=== PATIENT | male | born 1995 | race Caucasian/White ===

== ENCOUNTER 2021-04-10 17:14 | Emergency (ER) | payer OTHER ==
[~2021-04-10] VITALS: Ht 172.7 cm; Wt 59.0 kg
[~2021-04-10 17:14] MED LIST: ALBU90OI INH; ALBU90OI61; AMOX250CH PO; AMOX500 PO; AMOX50SU PO; AMOX875 PO; CEPH500 PO; CIPR250 PO; CODGUAEL PO; HYDACE5 PO; METR250 PO; SULTRIDS PO; [UNRECOGNIZED DRUG - REMARK]
[2021-04-10 19:50] LABS: BASOPHILS ABSOLUTE AUTO 0.02 K/mm3 (0.00-0.23); BASOPHILS PERCENT AUTO 0 % (0-2); EOSINOPHILS PERCENT AUTO 0 % (0-6); Hematocrit 38.9 % (37.0-53.0); Hemoglobin 13.2 g/dL (13.5-17.5); IMMATURE GRAN ABSOLUTE AUTO 0.07 K/mm3 (0.00-0.10); IMMATURE GRAN PERCENT AUTO 0 % (0-1); LYMPHOCYTES ABSOLUTE AUTO 0.55 K/mm3 (0.84-5.20); LYMPHOCYTES PERCENT AUTO 3 % (21-46); MONOCYTES ABSOLUTE AUTO 1.09 K/mm3 (0.16-1.47); MONOCYTES PERCENT AUTO 6 % (4-13); Mean Corpuscular HGB 30.7 pg (26.0-34.0); Mean Corpuscular HGB Conc 33.9 g/dL (31.5-36.5); Mean Corpuscular Volume 91 fL (80-100); Mean Platelet Volume 10.6 fL (9.1-12.4); NEUTROPHILS PERCENT AUTO 90 % (41-73); Platelet Count 169 K/mm3 (150-400); RDW Coefficient Variation 11.7 % (11.7-14.2); RDW Standard Deviation 38.5 fL (35.1-46.3); White Blood Cell Count 17.03 K/mm3 (4.00-11.30)
[2021-04-10 20:07] LABS: Alanine Aminotransfer (ALT/SGP 24 U/L (12-78); Albumin, Blood 3.5 g/dL (3.4-5.0); Alk Phos 83 U/L (50-136); Anion Gap 5 mmol/L (6-16); Aspartate Aminotrans (AST/SGOT 20 U/L (12-37); Bilirubin, Total 0.3 mg/dL (0.1-1.0); Blood Urea Nitrogen 20 mg/dL (8-24); Bun/Creatinine Ratio 24.4 (12.0-20.0); CO2, Blood 27 mmol/L (21-32); Calcium, Blood 8.7 mg/dL (8.5-10.1); Chloride, Blood 107 mmol/L (98-108); Creatinine, Blood 0.82 mg/dL (0.60-1.20); Globulin, Blood 3.6 g/dL (2.2-4.0); Glomerular Filtration Rate >60 (60-); Glucose, Blood 118 mg/dL (70-99); Potassium, Blood 4.1 mmol/L (3.5-5.5); Sodium, Blood 139 mmol/L (136-145); Total Protein, Blood 7.1 g/dL (6.4-8.2)
== END 2021-04-10 20:49 | disposition home or self-care (01) ==
LOC: ER 17:14
PROVIDERS: Emergency Medicine
DX: R41.82 Altered mental status, unspecified (principal); R00.0 Tachycardia, unspecified; R11.10 Vomiting, unspecified; T50.905A Adverse effect of unspecified drugs, medicaments and biological substances, initial encounter; J45.909 Unspecified asthma, uncomplicated; F17.200 Nicotine dependence, unspecified, uncomplicated
CPT/HCPCS: 80053; 83690; 85025; A9270

== ENCOUNTER 2021-10-21 19:17 | Emergency (ER) | payer OTHER ==
[~2021-10-21] VITALS: Ht 182.9 cm; Wt 63.5 kg
== END 2021-10-21 20:58 | disposition home or self-care (01) ==
LOC: ER 19:17
DX: U07.1 COVID-19 (principal); J45.909 Unspecified asthma, uncomplicated; F17.200 Nicotine dependence, unspecified, uncomplicated
CPT/HCPCS: A9270

== ENCOUNTER 2022-12-04 19:52 | Emergency (ER) | payer OTHER ==
[~2022-12-04] VITALS: Ht 172.7 cm; Wt 63.5 kg
[2022-12-04] MEDS ORDERED: ALBU90OI INH (20:14)
[2022-12-04 21:01] LABS: BASOPHILS ABSOLUTE AUTO 0.04 K/mm3 (0.00-0.23); BASOPHILS PERCENT AUTO 0 % (0-2); EOSINOPHILS ABSOLUTE AUTO 0.16 K/mm3 (0.00-0.68); EOSINOPHILS PERCENT AUTO 2 % (0-6); Hematocrit 42.4 % (37.0-53.0); Hemoglobin 14.6 g/dL (13.5-17.5); IMMATURE GRAN ABSOLUTE AUTO 0.02 K/mm3 (0.00-0.10); IMMATURE GRAN PERCENT AUTO 0 % (0-1); LYMPHOCYTES ABSOLUTE AUTO 1.49 K/mm3 (0.84-5.20); LYMPHOCYTES PERCENT AUTO 16 % (21-46); MONOCYTES ABSOLUTE AUTO 0.85 K/mm3 (0.16-1.47); MONOCYTES PERCENT AUTO 9 % (4-13); Mean Corpuscular HGB 30.6 pg (26.0-34.0); Mean Corpuscular HGB Conc 34.4 g/dL (31.5-36.5); Mean Corpuscular Volume 89 fL (80-100); Mean Platelet Volume 10.3 fL (9.1-12.4); NEUTROPHILS ABSOLUTE AUTO 7.05 K/mm3 (1.96-9.15); NEUTROPHILS PERCENT AUTO 73 % (41-73); Platelet Count 222 K/mm3 (150-400); RDW Coefficient Variation 11.6 % (11.7-14.2); RDW Standard Deviation 36.7 fL (35.1-46.3); Red Blood Cell Count 4.77 M/mm3 (4.30-5.90); White Blood Cell Count 9.61 K/mm3 (4.00-11.30)
[2022-12-04 21:21] LABS: Albumin, Blood 4.1 g/dL (3.4-5.0); Bilirubin, Total 0.5 mg/dL (0.1-1.0); Bun/Creatinine Ratio 15.2 (12.0-20.0); Calcium, Blood 9.1 mg/dL (8.5-10.1); Creatinine, Blood 0.92 mg/dL (0.60-1.20); Globulin, Blood 4.2 g/dL (2.2-4.0); Potassium, Blood 3.8 mmol/L (3.5-5.5); Total Protein, Blood 8.3 g/dL (6.4-8.2)
[2022-12-04 21:27] VITALS: BP 107/75
[2022-12-05] MEDS ORDERED: ONDA4ODT MM (00:24)
[2022-12-05] MEDS ORDERED: Protonix40 MG PO (00:24)
== END 2022-12-05 00:32 | disposition home or self-care (01) ==
LOC: ER 19:52
PROVIDERS: Physician Assistant
DX: R10.13 Epigastric pain (principal); R11.2 Nausea with vomiting, unspecified; J45.909 Unspecified asthma, uncomplicated; F17.210 Nicotine dependence, cigarettes, uncomplicated
CPT/HCPCS: 76705; 80053; 83690; 85025; 96374; 99284-25; A9270; J2405

== ENCOUNTER 2023-11-21 22:05 | Emergency (ER) | payer OTHER ==
[~2023-11-21] VITALS: Ht 172.7 cm; Wt 63.5 kg
[~2023-11-21 22:05] MED LIST changes: +ONDA4ODT MM; +Protonix40 MG PO
[2023-11-21 22:11] VITALS: BP 126/76
[2023-11-21] MEDS ORDERED: AZIT250 PO (22:15)
[2023-11-21] MEDS ORDERED: Clindamycin HCl 150 MG Cap PO ONE (22:55)
[2023-11-21] MEDS ORDERED: Cleocin HCl150 MG PO (23:00)
== END 2023-11-21 23:09 | disposition home or self-care (01) ==
LOC: ER 22:05
DX: K04.7 Periapical abscess without sinus (principal); J45.909 Unspecified asthma, uncomplicated
CPT/HCPCS: 64400; 99282-25; A9270